=== PATIENT | male | born 1965 | race Caucasian/White ===

== ENCOUNTER 2019-05-17 12:45 | Day surgery (SDC) | payer OTHER ==
[~2019-05-17] VITALS: Ht 184 cm; Wt 74.6 kg
[~2019-05-17 12:45] MED LIST: AMOCLA875 PO; AMOX500 PO; ASPI325 PO; ASPI81CH PO; CEPH500 PO; CLAR500 PO; CLOP75 PO; Crutch1 EACH MISC; HYDACE5 PO; LISI5 PO; METH40 PO; METO25ER PO; OXYACE5T PO; PANT40 PO; Percocet 10-321 EACH PO
--- NOTE | 2019-05-17 13:46 | NUR ---
Ambulatory in Day Surgery History, Chart, Medications and Allergies reviewed before start of procedure.Patient confirms NPO status and agrees with scheduled surgery. Patient states colon prep results clear.Lungs clear T/O to Auscultation.
--- NOTE | 2019-05-17 14:30 | NUR ---
05/17/19 1430 MARQUIS ZELAYA History, Chart, Medications and Allergies reviewed before start of procedure.3-LEAD EKG REVIEWED WITH PHYSICIAN PRIOR TO START OF PROCEDURE.O2 VIA N/C INTACT THROUGHOUT SEDATION/PROCEDURE. MONITOR INTACT WITH CONTINUOUS PULSE OXIMETRY AND INTERMITTENT BP.PATIENT DETERMINED TO BE ASA APPROPRIATE FOR PROPOFOL SEDATION PRIOR TO START OF PROCEDURE BY .
--- NOTE | 2019-05-17 15:13 | NUR ---
Discharge instructions reviewed with patient. Patient verbalizes understanding. Copy given to patient to take home. Discharged via wheelchair to private car for ride home.
== END 2019-05-17 23:07 | disposition home or self-care (01) ==
LOC: ORSCMMR 12:45 → ORD 14:15 → ORSCMMR 14:15
PROVIDERS: Internal Medicine Gastroenterology
PROC: 0DBP8ZX Excision of Rectum, Via Natural or Artificial Opening Endoscopic, Diagnostic (ICD-10-PCS; principal; 2019-05-17 14:15)
DX: Z12.11 Encounter for screening for malignant neoplasm of colon (principal); K62.89 Other specified diseases of anus and rectum; I25.2 Old myocardial infarction; F17.210 Nicotine dependence, cigarettes, uncomplicated
CPT/HCPCS: 88305; J2250; J2704; J7120

== ENCOUNTER 2021-03-04 17:49 | Inpatient (IN) | payer OTHER ==
[~2021-03-04] VITALS: Ht 188 cm; Wt 76.7 kg
[~2021-03-04 17:49] MED LIST changes: +ATOR20 PO; +Isosorbide Mono30 MG PO; +METH10 PO; -METH40 PO; +METO25 PO; +WARF4 PO
[2021-03-04] MEDS ORDERED: NITR.4SL SL (18:01)
[2021-03-04 19:12] LABS: BASOPHILS ABSOLUTE AUTO 0.04 K/mm3 (0.00-0.23); BASOPHILS PERCENT AUTO 1 % (0-2); EOSINOPHILS ABSOLUTE AUTO 0.13 K/mm3 (0.00-0.68); EOSINOPHILS PERCENT AUTO 2 % (0-6); Hematocrit 48.8 % (37.0-53.0); Hemoglobin 16.9 g/dL (13.5-17.5); IMMATURE GRAN ABSOLUTE AUTO 0.02 K/mm3 (0.00-0.10); IMMATURE GRAN PERCENT AUTO 0 % (0-1); LYMPHOCYTES ABSOLUTE AUTO 1.54 K/mm3 (0.84-5.20); LYMPHOCYTES PERCENT AUTO 18 % (21-46); MONOCYTES ABSOLUTE AUTO 0.48 K/mm3 (0.16-1.47); MONOCYTES PERCENT AUTO 6 % (4-13); Mean Corpuscular HGB 30.7 pg (26.0-34.0); Mean Corpuscular HGB Conc 34.6 g/dL (31.5-36.5); Mean Corpuscular Volume 89 fL (80-100); Mean Platelet Volume 9.2 fL (9.1-12.4); NEUTROPHILS ABSOLUTE AUTO 6.58 K/mm3 (1.96-9.15); NEUTROPHILS PERCENT AUTO 75 % (41-73); Platelet Count 238 K/mm3 (150-400); RDW Coefficient Variation 13.4 % (11.7-14.2); RDW Standard Deviation 43.7 fL (35.1-46.3); Red Blood Cell Count 5.51 M/mm3 (4.30-5.90); White Blood Cell Count 8.79 K/mm3 (4.00-11.30)
[2021-03-04 19:29] LABS: International Normalized Ratio 1.7; Prothrombin Time Results 17.8 Sec (9.7-11.5)
[2021-03-04 19:36] LABS: Bilirubin, Total 1.2 mg/dL (0.1-1.0); Bun/Creatinine Ratio 15.3 (12.0-20.0); Calcium, Blood 9.7 mg/dL (8.5-10.1); Creatinine, Blood 1.37 mg/dL (0.60-1.20); Globulin, Blood 4.1 g/dL (2.2-4.0); Potassium, Blood 4.2 mmol/L (3.5-5.5); Total Protein, Blood 8.1 g/dL (6.4-8.2)
[2021-03-04] MEDS ORDERED: METO50ER PO (21:26)
[2021-03-04 22:29] LABS: SARS-Cov-2 (COVID-19) PCR, MMC NEGATIVE (NEGATIVE)
[2021-03-05 04:55] LABS: BASOPHILS ABSOLUTE AUTO 0.03 K/mm3 (0.00-0.23); BASOPHILS PERCENT AUTO 0 % (0-2); EOSINOPHILS ABSOLUTE AUTO 0.08 K/mm3 (0.00-0.68); EOSINOPHILS PERCENT AUTO 1 % (0-6); Hematocrit 42.4 % (37.0-53.0); Hemoglobin 14.6 g/dL (13.5-17.5); IMMATURE GRAN ABSOLUTE AUTO 0.02 K/mm3 (0.00-0.10); IMMATURE GRAN PERCENT AUTO 0 % (0-1); LYMPHOCYTES ABSOLUTE AUTO 2.11 K/mm3 (0.84-5.20); LYMPHOCYTES PERCENT AUTO 25 % (21-46); MONOCYTES ABSOLUTE AUTO 0.85 K/mm3 (0.16-1.47); MONOCYTES PERCENT AUTO 10 % (4-13); Mean Corpuscular HGB 30.9 pg (26.0-34.0); Mean Corpuscular HGB Conc 34.4 g/dL (31.5-36.5); Mean Corpuscular Volume 90 fL (80-100); Mean Platelet Volume 9.2 fL (9.1-12.4); NEUTROPHILS ABSOLUTE AUTO 5.52 K/mm3 (1.96-9.15); NEUTROPHILS PERCENT AUTO 64 % (41-73); Platelet Count 210 K/mm3 (150-400); RDW Coefficient Variation 13.2 % (11.7-14.2); RDW Standard Deviation 43.7 fL (35.1-46.3); Red Blood Cell Count 4.73 M/mm3 (4.30-5.90); White Blood Cell Count 8.61 K/mm3 (4.00-11.30)
[2021-03-05 05:10] LABS: International Normalized Ratio 1.38
[2021-03-05 05:18] LABS: Anion Gap 4 mmol/L (6-16); Blood Urea Nitrogen 18 mg/dL (8-24); Bun/Creatinine Ratio 15.7 (12.0-20.0); CO2, Blood 29 mmol/L (21-32); Calcium, Blood 8.7 mg/dL (8.5-10.1); Chloride, Blood 106 mmol/L (98-108); Creatinine, Blood 1.15 mg/dL (0.60-1.20); Glomerular Filtration Rate >60 (60-); Glucose, Blood 115 mg/dL (70-99); Potassium, Blood 4.2 mmol/L (3.5-5.5); Sodium, Blood 139 mmol/L (136-145)
[2021-03-05 05:51] LABS: Prothrombin Time Results 14.6 Sec (9.7-11.5)
--- NOTE | 2021-03-05 10:35 | NUR ---
PT IS ANXIOUS AND STATES HE CAN ONLY "TOLERATE 12 HOURS" AND WANTS TO KNOW WHEN HE CAN GO HOME WHETHER HE GETS TREATMENT OR NOT. THIS RN EXPLAINED TO HIM WE WANT TO HELP HIM AND IT IS HIS CHOICE IF HE WOULD LIKE TO STAY FOR TREATMENT. THIS RN EXPLAINED IF HE DECIDED HE WANTED TO LEAVE AMA HE WOULD HAVE TO SIGN A PAPER STATING HE UNDERSTANDS THE RISKS AND THAT IT IS AGAINST MEDICAL ADVICE. HE SAID HE WAS FINE WITH THAT AND WILL WAIT UNTIL NOON AND IF NOTHING HAPPENS BY THEN HE WANTS TO LEAVE.
--- NOTE | 2021-03-05 13:59 | NUR ---
03/05/21 1359 Isadora Shelby PATIENT ON SCHEDULED ANCEF
--- NOTE | 2021-03-05 14:50 | NUR ---
RECEIVED REPORT FROM OUMOU IN PACU. PT RETURNED FROM SURGERY A&O X4 AND SITTING UP IN BED. REPORTS PAIN AT 2/10 ON PAIN SCALE. CAP REFILL ON L TOES IS <3, TOES ARE WARM TO TOUCH AND PT CAN MOVE TOES. SPLINT AND ONESIMO WRAP IN PLACE AND C/D/I.
--- NOTE | 2021-03-05 16:15 | NUR ---
VERBAL OKAY TO SPEAK WITH PT'S , CIARA. SPOKE WITH CIARA AND SHE SAID HER IS ASKING TO BE ALLOWED TO GO HOME. DISCUSSED THE IMPORTANCE OF IV ABX AND VITAL SIGNS MAINTAINED AFTER SURGERY. DISCUSSED RECOMMENDATION TO STAY OVER NIGHT. DESPITE DISCUSSION PT AND WOULD LIKE PT TO GO HOME IF POSSIBLE. SHE STATES THEY HAVE A WALKER AT HOME AND PT HAS HELP.
[2021-03-05] MEDS ORDERED: LORCET 5-325 M1 EACH PO (18:31)
[2021-03-05] MEDS ORDERED: SULTRIDS PO (18:33)
--- NOTE | 2021-03-05 19:56 | NUR ---
DISCHARGE SUMMARY POD 0 FOR LEFT ANKLE FX AND I&D. SINCE PT ARRIVED BACK FROM SURGERY HE HAS BEEN REQUESTING TO D/C HOME. FAMILY HAS ALSO REQUESTED THAT PT D/C TODAY. PAIN MANAGEMENT IMPROVED AFTER SURGERY. PT RATES HIS PAIN AT 2-3/10 ON PAIN SCALE. PT HAD 1 MG OF DILAUDID FOR PAIN MANAGEMENT THIS EVENING AND REPORTED PAIN WAS MANAGED, DOSE DECREASED FROM PRIOR TO SURGERY WITH BETTER EFFECT. PT AND SPOUSE CONTIUED TO EXPRESS DESIRE FOR PT TO LEAVE TODAY. WAS NOTIFIED AND PROVIDED BACTRIM DS FOR ABX. DR. PLASCENCIA CONTACTED FOR PO PAIN MEDICATION SCRIPT AND D/C ORDERS. PT EDUCATED TO F/U WITH DR. HICKS ON TUESDAY FOR WOUNDCARE. WRITTEN AND VERBAL D/C ORDERS PROVIDED. PT PROVIDED EDUCATION ABOUT PAIN MEDS AND ABX. PT PROVIDED WITH A RX FOR FWW AND EDUCATED TO REMAIN NON WEIGHT BEARING. PT VERBALIZED HE HAS ACCESS TO A WALKER AT HOME. PT ABLE TO AMBULATE AND MAINTAIN WEIGHT BEARING STATUS PRIOR TO D/C. PHARMACIST CALLED FROM [facility] [place] AND REPORTED TO SNEHA MAZARIEGOS THAT THEY WOULD EDUCATE PT TO FOLLOW UP WITH THE [facility]. TOLERATING PO BEFORE D/C WITH NO REPORT OF N/V. ABLE TO VOID PRIOR TO D/C. PT EDUCATED HIS PHARMACY CLOSES AT 8 PM TONIGHT. PT ESCORTED OUT IN WHEELCHAIR AT APPROX. 1915. WRITTEN RX PROVIDED AND SENT WITH PT.
== END 2021-03-05 19:15 | disposition home or self-care (01) | DRG 493 ==
LOC: ER 17:49 → SURS 21:28
PROVIDERS: Emergency Medicine; Family Medicine; Physician Assistant; ADMIT Internal Medicine
PROC: 2W3TX1Z Immobilization of Left Foot using Splint (ICD-10-PCS; principal; 2021-03-04)
PROC: 0QBH0ZZ Excision of Left Tibia, Open Approach (ICD-10-PCS; 2021-03-05)
PROC: 0SSG0ZZ Reposition Left Ankle Joint, Open Approach (ICD-10-PCS; 2021-03-05)
DX: S82.55XB Nondisplaced fracture of medial malleolus of left tibia, initial encounter for open fracture type I or II (principal); N17.9 Acute kidney failure, unspecified; I50.22 Chronic systolic (congestive) heart failure; I13.0 Hypertensive heart and chronic kidney disease with heart failure and stage 1 through stage 4 chronic kidney disease, or unspecified chronic kidney disease; Z20.822 Contact with and (suspected) exposure to COVID-19; I25.10 Atherosclerotic heart disease of native coronary artery without angina pectoris; N18.30 Chronic kidney disease, stage 3 unspecified; E78.5 Hyperlipidemia, unspecified; F17.210 Nicotine dependence, cigarettes, uncomplicated; F19.10 Other psychoactive substance abuse, uncomplicated; I25.2 Old myocardial infarction; Z79.01 Long term (current) use of anticoagulants; Z79.82 Long term (current) use of aspirin; Z79.899 Other long term (current) drug therapy; Z98.890 Other specified postprocedural states; V09.09XA Pedestrian injured in nontraffic accident involving other motor vehicles, initial encounter
CPT/HCPCS: 29515; 36415; 73590; 73610; 80048; 80053; 85025; 85610; 96365-59; 96366; 96366-59; 96367-59; 96375-59; 96376-59; 97116; 97161; 99284-25; A9270; C1751; J0690; J1100; J1170; J1885; J1956; J2405; J2704; J3010; J3430; J7030; J7120; U0004

== ENCOUNTER 2023-06-22 10:13 | Observation (INO) | payer OTHER ==
[~2023-06-22 10:13] MED LIST changes: +LORCET 5-325 M1 EACH PO; +METO50ER PO; +NITR.4SL SL; +SULTRIDS PO
[2023-06-22 11:43] LABS: BASOPHILS ABSOLUTE AUTO 0.04 K/mm3 (0.00-0.23); BASOPHILS PERCENT AUTO 1 % (0-2); EOSINOPHILS ABSOLUTE AUTO 0.14 K/mm3 (0.00-0.68); EOSINOPHILS PERCENT AUTO 3 % (0-6); Hematocrit 50.1 % (37.0-53.0); Hemoglobin 17.1 g/dL (13.5-17.5); IMMATURE GRAN PERCENT AUTO 0 % (0-1); LYMPHOCYTES ABSOLUTE AUTO 1.61 K/mm3 (0.84-5.20); LYMPHOCYTES PERCENT AUTO 32 % (21-46); MONOCYTES ABSOLUTE AUTO 0.44 K/mm3 (0.16-1.47); MONOCYTES PERCENT AUTO 9 % (4-13); Mean Corpuscular HGB 29.5 pg (26.0-34.0); Mean Corpuscular HGB Conc 34.1 g/dL (31.5-36.5); Mean Corpuscular Volume 87 fL (80-100); Mean Platelet Volume 9.1 fL (9.1-12.4); NEUTROPHILS ABSOLUTE AUTO 2.77 K/mm3 (1.96-9.15); NEUTROPHILS PERCENT AUTO 55 % (41-73); Platelet Count 272 K/mm3 (150-400); RDW Coefficient Variation 12.4 % (11.7-14.2); RDW Standard Deviation 39.2 fL (35.1-46.3); Red Blood Cell Count 5.79 M/mm3 (4.30-5.90)
[2023-06-22 12:04] LABS: Albumin, Blood 3.8 g/dL (3.4-5.0); Albumin/Globulin Ratio 1.1 (0.8-1.8); Bilirubin, Total 1.1 mg/dL (0.1-1.0); Bun/Creatinine Ratio 16.3 (12.0-20.0); Calcium, Blood 9.4 mg/dL (8.5-10.1); Creatinine, Blood 0.92 mg/dL (0.60-1.20); Globulin, Blood 3.6 g/dL (2.2-4.0); Potassium, Blood 4.3 mmol/L (3.5-5.5); Total Protein, Blood 7.4 g/dL (6.4-8.2)
[2023-06-22] MEDS ORDERED: ZUBSOLV SL (15:52)
[2023-06-22 16:32] LABS: International Normalized Ratio 1.02; Prothrombin Time Results 10.7 Sec (9.7-11.5)
[2023-06-22 16:35] VITALS: BP 113/78
[2023-06-22] MEDS ORDERED: ELIQUIS5 M2 PO (17:03)
--- NOTE | 2023-06-22 18:11 | NUR ---
PATIENT ARRIVED TO UNIT AT 1602 AND ORIENTATED TO UNIT. HE STATES CHEST PAIN ACHE 2-3/10 CONSTANT AND REMAINS UNCHANGED SINCE HIS ARRIVAL. NO OTHER ISSUES AT THIS TIME. DR SALAZAR AWARE AND IF ANY CHANGES IN PAIN, NOTIFY MD AND GET EKG.
[2023-06-22 19:04] VITALS: BP 104/76
[2023-06-23 01:53] VITALS: BP 102/84
[2023-06-23 03:37] LABS: CHOL/HDL RATIO 2.8; Cholesterol 143 mg/dL (50-200); HDL Cholesterol 52 mg/dL (>39); LDL/HDL RATIO 1.4; Low Density Lipoprotein Chol 73 mg/dL (0-110); Triglycerides 88 mg/dL (30-160); Very Low Density Lipoprot Chol 17 mg/dL (6-32)
--- NOTE | 2023-06-23 05:29 | NUR ---
Shift Summary: Patient is alert and oriented x 4. Rested quietly through the night. Denies chest pain. No nausea, vomiting or diaphoresis. Respirations regular and unlabored. Lungs sounds clear. Skin warm and dry. Patient is on tele in a sinus rhythm. He is scheduled to have a stress test this morning.
[2023-06-23 07:29] VITALS: BP 92/60
[2023-06-23] MEDS ORDERED: ATOR20 PO (17:00)
--- NOTE | 2023-06-23 17:37 | NUR ---
DISCHARGE: PT D/C @4255 INDEPENDENTLY WITH . WHILE THIS RN WENT TO GRAB DISCHARGE MEDICATIONS, PT AND HAD ALREADY LEFT. VERBAL ORDERS GIVEN BY MYSELF AND DR. SALAZAR PRIOR TO D/C. THIS RN AND POWER NUT RUNNER OPERATOR DOUBLE SIGNED D/C PAPERWORK. PT AWARE TO FOLLOW-UP WITH DR. MONTOYA AND PCP. NEW MEDICATION, ATORVASTATIN, FAXED TO [facility]. IV REMOVED BY JAIDA HENRIQUEZ W/O COMPLICATIONS. STRESS TEST IMAGING NOT RECEIVED/READ PRIOR TO D/C. PT AND DR. SALAZAR AWARE. PT TO FOLLOW-UP OUTPT FOR RESULTS. DR. SALAZAR ALSO STATED SHE WOULD CALL PT ONCE RESULTS ARRIVED.
== END 2023-06-23 17:12 | disposition home or self-care (01) ==
LOC: ER 10:13 → MEDS 15:00
PROVIDERS: Emergency Medicine; ADMIT Internal Medicine
DX: R07.89 Other chest pain (principal); I25.10 Atherosclerotic heart disease of native coronary artery without angina pectoris; I11.0 Hypertensive heart disease with heart failure; I50.20 Unspecified systolic (congestive) heart failure; E78.5 Hyperlipidemia, unspecified; F17.290 Nicotine dependence, other tobacco product, uncomplicated; I25.2 Old myocardial infarction; Z95.5 Presence of coronary angioplasty implant and graft; Z79.01 Long term (current) use of anticoagulants; Z79.82 Long term (current) use of aspirin; Z79.899 Other long term (current) drug therapy
CPT/HCPCS: 36415; 71045; 78452; 80053; 80061; 84484; 85025; 85610; 93005; 93010; 93017; 96372; 99285-25; A9270; A9500; G0378; J1644; J2785

== ENCOUNTER 2024-12-17 06:00 | Day surgery (SDC) | payer OTHER ==
[2024-12-17] VITALS (12 sets, daily range): BP systolic 113–154; BP diastolic 79–112
[~2024-12-17 06:00] MED LIST changes: +ELIQUIS5 M2 PO; +ZUBSOLV SL
[2024-12-17] MEDS ORDERED: OMEP20ER PO (06:24)
[2024-12-17] MEDS ORDERED: Benzocaine Oral Spray 0.5ML UD ONE (06:27)
[2024-12-17] MEDS ORDERED: NS 1,000 ML IV ONE (06:42)
--- NOTE | 2024-12-17 07:09 | NUR ---
PT STATES HE LAST ATE BEFORE MIDNIGHT LAST NIGHT.
--- NOTE | 2024-12-17 08:20 | NUR ---
PT DRANK WATER WITH NO ASPIRATION. DISCHARGE INSTRUCTIONS REVIEWED ALL QUESTIONS ANSWERED. PT ESCORTED OUT VIA WHEELCHAIR ESCORT. 24 G IV WAS STARTED PER PROTOCOL AND DISCONTINUED WITH INTACT CANNULA. 20 G IV DISCONTINUED IN R AC DUE TO INFILTRATION DURING NORTH; PRESSURE DRESSING PLACED OVER SITE WITH WARM BLANKET.
[2024-12-17] MEDS ORDERED: Lidocaine HCl 2% 20 MG/ML 5ML SYR IV ONE (14:47)
== END 2024-12-17 23:00 | disposition home or self-care (01) ==
LOC: MHTC 06:00
DX: I63.9 Cerebral infarction, unspecified (principal)
CPT/HCPCS: 93312; 93325; A9270; J2003; J2704; J7030

== ENCOUNTER 2025-04-29 10:37 | Day surgery (SDC) | payer OTHER | END 2025-04-29 15:11 | disposition home or self-care (01) | LOC: MHTC 10:37 | DX: I25.10 Atherosclerotic heart disease of native coronary artery without angina pectoris (principal); I25.5 Ischemic cardiomyopathy; Q21.12 Patent foramen ovale; I10 Essential (primary) hypertension; E78.5 Hyperlipidemia, unspecified ==